=== PATIENT | male | born 1955 | race American Indian/Alaskan Native ===

== ENCOUNTER 2016-09-08 14:39 | Emergency (ER) | payer MEDICARE ==
[2016-09-08 15:59] LABS: Basophils % (Auto) 0.6 % (0.0-1.8); Eosinophils % (Auto) 2.8 % (0.0-4.3); Hematocrit 41.4 % (35.5-45.6); Hemoglobin 13.9 gm/dl (11.8-15.2); Mean Corpuscular HGB Conc 34 % (32-34); Mean Corpuscular Hemoglobin 33 pg (28-32); Mean Corpuscular Volume 99 fl (84-94); Platelet Count 340 K/mm3 (140-440); White Blood Count 8.5 K/mm3 (4.5-11.0)
[2016-09-08 16:10] LABS: Anion Gap 17 mmol/L; Blood Urea Nitrogen 21 mg/dL (9-20); Calcium 9.3 mg/dL (8.4-10.2); Carbon Dioxide 28 mmol/L (22-30); Chloride 99.2 mmol/L (98-107); Glucose 106 mg/dL (75-100); Potassium 3.9 mmol/L (3.6-5.0); Sodium 140 mmol/L (137-145)
[2016-09-08 16:25] LABS: Urine Drugs of Abuse Note Disclamer
[2016-09-08 16:33] LABS: Bilirubin,Urine NEG (Negative); Blood,Urine NEG (Negative); Ketones,Urine TR mg/dL (Negative); Leukocyte Esterase,Urine NEG (Negative); Mucus,Urine FEW /HPF; Nitrite,Urine NEG (Negative)
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
[2016-09-08] MEDS ORDERED: GEODON IM ONE ×3 (20:31→21:10)
[2016-09-09] MEDS ORDERED: ALUM-MAG HYDROX-SIMETH 200-200-20MG/5ML PO PRN (01:30)
[2016-09-09] MEDS ORDERED: MILK OF MAGNESIA PO PRN (01:30)
[2016-09-09] MEDS ORDERED: TYLENOL PO PRN (01:30)
[2016-09-09] MEDS ORDERED: GEODON PO SCH (10:00)
[2016-09-09 10:33] VITALS: BP 126/74
== END 2016-09-09 10:58 ==
LOC: ED 14:39 → EEVIPCON 14:39 → ED 09-09 10:58
DX: F22 Delusional disorders (principal); R45.850 Homicidal ideations; F29 Unspecified psychosis not due to a substance or known physiological condition
CPT/HCPCS: 36415; 80048; 80307; 81001; 85025; 96372; 99285; G0480; J3486; 80320

== ENCOUNTER 2016-09-20 20:25 | Inpatient (IN) | payer MEDICARE ==
[2016-09-20] MEDS ORDERED: HALDOL IM ONE (20:42)
[2016-09-20] MEDS ORDERED: BENADRYL IM ONE (20:42)
[2016-09-20] MEDS ORDERED: ATIVAN IM ONE (20:42)
--- NOTE | 2016-09-20 20:45 | Emergency Department Report ---
ED Psych HPI - General Chief Complaint: Psych Stated Complaint: JENISE EVAL Time Seen by Provider: 09/20/16 20:35 Source: police, RN notes reviewed, old records reviewed Limitations: Other (patient is actively psychotic) - History of Present Illness Initial Comments: This is a 61-year-old male. He is previously unknown to me. He is brought to the hospital by local police department. As per the mounted police officer, Ofc. Winslow , the patient's sister apparently called 911. The patient apparently resides at [place]. History is limited as the patient is rambling, and nonsensical. He did not respond to verbal the escalation techniques or show of force. He became quite agitated and angry when he was informed that he will be made at 1013. He was given Haldol, Ativan, Benadryl to safely allow him to participate in his medical care. Review of old medical records indicates the patient is psychiatrically ill. Nursing staff attempted to contact the patient's sister, to obtain collateral information, but nobody answered the phone. CK is slightly elevated at slightly over 1000. This is not really consistent with rhabdomyolysis. Renal function is within normal limits. Nevertheless, he will be given an IV, 2 L of IV fluid, and we will repeat his CK after 2 L of IV fluid. MD Complaint: other -: unknown Associated Psychiatric Symptoms: other Quality: other Worsens With: other - Related Data Home Medications Medication Instructions Recorded Confirmed Last Taken No Known Home Medications [No 09/09/16 09/21/16 Unknown Reported Home Medications] Allergies Allergy/AdvReac Type Severity Reaction Status Date / Time Unable to Assess Allergy Verified 09/20/16 20:45 ED Review of Systems ROS: Stated complaint: MH EVAL Other details as noted in HPI ED Past Medical Hx - Past Medical History Hx Hypertension: Yes Hx Psychiatric Treatment: Yes - Social History Smoking Status: Unknown if ever smoked Substance Use Type: None - Medications Home Medications: Home Medications Medication Instructions Recorded Confirmed Last Taken Type No Known Home Medications [No 09/09/16 09/21/16 Unknown History Reported Home Medications] ED Physical Exam - General Limitations: Other (patient actively psychotic, rambling, nonsensical) General appearance: in no apparent distress - Head Head exam: Present: atraumatic, normocephalic - Eye Eye exam: Present: normal appearance, EOMI - ENT ENT exam: Present: normal exam, normal orophraynx, mucous membranes moist - Neck Neck exam: Present: normal inspection, full ROM. Absent: tenderness, meningismus - Respiratory Respiratory exam: Present: normal lung sounds bilaterally. Absent: respiratory distress, wheezes, rales, rhonchi, stridor, decreased breath sounds - Cardiovascular Cardiovascular Exam: Present: regular rate, normal rhythm, normal heart sounds. Absent: bradycardia, tachycardia, irregular rhythm, systolic murmur, diastolic murmur, rubs, gallop - GI/Abdominal GI/Abdominal exam: Present: soft, normal bowel sounds. Absent: distended, tenderness, guarding, rebound, rigid, bruit, pulsatile mass - Rectal Rectal exam: Present: deferred - Extremities Exam Extremities exam: Present: normal inspection, full ROM, normal capillary refill. Absent: tenderness, pedal edema, joint swelling, calf tenderness - Back Exam Back exam: Present: normal inspection, full ROM. Absent: tenderness, CVA tenderness (R), CVA tenderness (L), muscle spasm, paraspinal tenderness, vertebral tenderness - Neurological Exam Neurological exam: Present: altered, other (patient walks with a steady gait. Moves 4 extremities spontaneously. Speaks nonsensically.) - Psychiatric Psychiatric exam: Present: agitated - Skin Skin exam: Present: warm, dry, intact, normal color. Absent: rash ED Course Vital Signs 09/20/16 09/20/16 09/21/16 21:34 23:51 03:51 Temperature 98.6 F 98.7 F 98.8 F Pulse Rate 95 H 87 89 Pulse Rate [ Left Radial] Respiratory 14 14 Rate Blood Pressure 133/84 Blood Pressure [Left Arm] Blood Pressure 135/82 138/79 [Right] O2 Sat by Pulse 95 98 98 Oximetry 09/21/16 09/21/16 09/21/16 05:28 07:00 09:00 Temperature 98.1 F Pulse Rate 45 L Pulse Rate [ Left Radial] Respiratory 14 16 16 Rate Blood Pressure Blood Pressure [Left Arm] Blood Pressure 102/56 [Right] O2 Sat by Pulse 98 96 96 Oximetry 09/21/16 09/21/16 15:53 17:30 Temperature 97.6 F 97.6 F Pulse Rate 49 L Pulse Rate [ 66 Left Radial] Respiratory 20 15 Rate Blood Pressure Blood Pressure 119/70 [Left Arm] Blood Pressure 122/78 [Right] O2 Sat by Pulse 99 97 Oximetry - Reevaluation(s) Reevaluation #1: 09/20/16 22:17 Differential diagnosis: Rhabdomyolysis, myositis, decompensated psychosis, drug abuse Reevaluation #2: 09/21/16 05:44 patient has had slightly elevating levels of creatinine kinase. He received a third liter of IV fluid, but the fourth liter was apparently disconnected inadvertently. Additional 2 L of IV fluid over ordered. Compartments are soft. I don't believe he requires admission, but he will require additional observation in the emergency department. Care is transferred to Dr. Barber to follow-up on the patient's repeat creatinine kinase after IV fluids. Once his levels have been demonstrated to be downtrending, I think it is suitable for the patient to be seen and evaluated by crisis for psychiatric placement. 09/21/16 06:07 ED Medical Decision Making - Lab Data Result diagrams: 09/20/16 21:31 09/21/16 08:15 Vital Signs 09/20/16 21:34 Temperature 98.6 F Pulse Rate 95 H Blood Pressure 133/84 O2 Sat by Pulse 95 Oximetry Lab Results 09/20/16 09/20/16 09/20/16 Range/Units 20:42 21:31 21:31 WBC 8.4 (4.5-11.0) K/mm3 RBC 3.99 (3.65-5.03) M/mm3 Hgb 13.0 (11.8-15.2) gm/dl Hct 39.3 (35.5-45.6) % MCV 98 H (84-94) fl MCH 33 H (28-32) pg MCHC 33 (32-34) % RDW 14.0 (13.2-15.2) % Plt Count 301 (140-440) K/mm3 Sodium 142 (137-145) mmol/L Potassium 3.6 (3.6-5.0) mmol/L Chloride 103.2 (98-107) mmol/L Carbon Dioxide 25 (22-30) mmol/L Anion Gap 17 mmol/L BUN 18 (9-20) mg/dL Creatinine 0.9 (0.8-1.5) mg/dL Estimated GFR > 60 ml/min BUN/Creatinine Ratio 20.00 % Glucose 105 H (75-100) mg/dL Calcium 8.6 (8.4-10.2) mg/dL Total Creatine Kinase 1057 H (55-170) units/L Urine Color Yellow (Yellow) Urine Turbidity Clear (Clear) Urine pH 5.0 (5.0-7.0) Ur Specific [place] 1.032 H (1.003-1.030) Urine Protein <15 mg/dl (Negative) mg/dL Urine Glucose (UA) 50 (Negative) mg/dL Urine Ketones Tr (Negative) mg/dL Urine Blood Neg (Negative) Urine Nitrite Neg (Negative) Urine Bilirubin Neg (Negative) Urine Urobilinogen < 2.0 (<2.0) mg/dL Ur Leukocyte Esterase Neg (Negative) Urine WBC (Auto) 1.0 (0.0-6.0) /HPF Urine RBC (Auto) 3.0 (0.0-6.0) /HPF U Epithel Cells (Auto) 1.0 (0-13.0) /HPF Urine Mucus 1+ /HPF Salicylates (2.8-20.0) mg/dL 09/20/16 Range/Units 21:31 WBC (4.5-11.0) K/mm3 RBC (3.65-5.03) M/mm3 Hgb (11.8-15.2) gm/dl Hct (35.5-45.6) % MCV (84-94) fl MCH (28-32) pg MCHC (32-34) % RDW (13.2-15.2) % Plt Count (140-440) K/mm3 Sodium (137-145) mmol/L Potassium (3.6-5.0) mmol/L Chloride (98-107) mmol/L Carbon Dioxide (22-30) mmol/L Anion Gap mmol/L BUN (9-20) mg/dL Creatinine (0.8-1.5) mg/dL Estimated GFR ml/min BUN/Creatinine Ratio % Glucose (75-100) mg/dL Calcium (8.4-10.2) mg/dL Total Creatine Kinase (55-170) units/L Urine Color (Yellow) Urine Turbidity (Clear) Urine pH (5.0-7.0) Ur Specific [place] (1.003-1.030) Urine Protein (Negative) mg/dL Urine Glucose (UA) (Negative) mg/dL Urine Ketones (Negative) mg/dL Urine Blood (Negative) Urine Nitrite (Negative) Urine Bilirubin (Negative) Urine Urobilinogen (<2.0) mg/dL Ur Leukocyte Esterase (Negative) Urine WBC (Auto) (0.0-6.0) /HPF Urine RBC (Auto) (0.0-6.0) /HPF U Epithel Cells (Auto) (0-13.0) /HPF Urine Mucus /HPF Salicylates 1.0 L (2.8-20.0) mg/dL Critical care attestation.: If time is entered above; I have spent that time in minutes in the direct care of this critically ill patient, excluding procedure time. ED Disposition Clinical Impression: Mood disorder Disposition: DC/TX PSY HOSP/PSY UNIT Is pt being admited?: No Does the pt Need Aspirin: No Condition: Good
[2016-09-20 21:25] LABS: Urine Drugs of Abuse Note Disclamer
[2016-09-20 21:36] LABS: Bilirubin,Urine NEG (Negative); Blood,Urine NEG (Negative); Ketones,Urine TR mg/dL (Negative); Leukocyte Esterase,Urine NEG (Negative); Mucus,Urine 1+ /HPF; Nitrite,Urine NEG (Negative); Protein,Urine <15 mg/dL mg/dL (Negative); Urobilinogen,Urine < 2.0 mg/dL (<2.0)
[2016-09-20 21:49] LABS: Hematocrit 39.3 % (35.5-45.6); Mean Corpuscular HGB Conc 33 % (32-34); Mean Corpuscular Hemoglobin 33 pg (28-32); Mean Corpuscular Volume 98 fl (84-94); Platelet Count 301 K/mm3 (140-440); Red Blood Count 3.99 M/mm3 (3.65-5.03); White Blood Count 8.4 K/mm3 (4.5-11.0)
[2016-09-20 22:06] LABS: Anion Gap 17 mmol/L; Blood Urea Nitrogen 18 mg/dL (9-20); Calcium 8.6 mg/dL (8.4-10.2); Carbon Dioxide 25 mmol/L (22-30); Chloride 103.2 mmol/L (98-107); Creatine Kinase 1057 units/L (55-170); Glucose 105 mg/dL (75-100); Potassium 3.6 mmol/L (3.6-5.0); Sodium 142 mmol/L (137-145)
[2016-09-20] MEDS ORDERED: VALIUM ONE (22:16)
[2016-09-20] MEDS ORDERED: VALIUM IM ONE (22:43)
[2016-09-20] MEDS ORDERED: NACL 0.9% 1000 ML IV ONE (23:00)
[2016-09-21] MEDS ORDERED: NACL 0.9% 1000 ML IV ONE ×2 (03:00→06:00)
[2016-09-21] MEDS ORDERED: NACL 0.9% 1000 ML 2,000 ML ONE (05:43)
[2016-09-21 08:45] LABS: Anion Gap 16 mmol/L; Blood Urea Nitrogen 14 mg/dL (9-20); Calcium 7.6 mg/dL (8.4-10.2); Carbon Dioxide 25 mmol/L (22-30); Chloride 106.8 mmol/L (98-107); Creatine Kinase 1408 units/L (55-170); Glucose 103 mg/dL (75-100); Potassium 4.3 mmol/L (3.6-5.0); Sodium 143 mmol/L (137-145)
--- NOTE | 2016-09-21 12:16 | Admit Criteria Form ---
Admission Criteria Documentation: MUSCULOSKELETAL DISEASE GRG Clinical Indications for Admission to Inpatient Care (Place 'X' for any and all applicable criteria): Hospital admission is needed for appropriate care of the patient because of ANY ONE of the following: [ ]I. Fracture, dislocation, or other musculoskeletal injury requiring inpatient care(medical) as indicated by ANY ONE of the following(4)(5)(6)(7) [ ]a) Vertebral fracture requiring observation for instability or neurologic compromise (8) [ ]b) Compartment syndrome (proven or cannot be ruled out during observation level of care) (9) [ ]c) Limb-threatening injury [ ]d) Major injury requiring inpatient stabilization such as traction initiation or external fixation before internal fixation or closure of complex or open fracture [ ]e) Major injury requiring inpatient treatment after emergency or observation level care (as appropriate) [ ]f) Severe pain requiring acute inpatient management [ ]II. Newly diagnosed or suspected bone, joint, or orthopedic device infection (e.g., osteomyelitis, septic arthritis) needing ANY ONE of the following(1)(2)(3) [ ]a) IV antibiotics that cannot be initiated in other than inpatient setting (e.g., patient too unstable or home infusion not available) [ ]b) Device removal or replacement [ ]c) Bone or soft tissue debridement [ ]d) Joint drainage (drain placement or repetitive aspirations) [ ]III. Severe rheumatologic disease (e.g., systemic lupus erythematosus, rheumatoid arthritis) with complications or comorbidities (Also use Optimal Recovery Care Criteria or General Recovery Criteria as appropriate on the basis of predominant condition), including ANY ONE of the following(10 )(11)(12)(13) [ ]a) Severe infection (e.g., [employer] infection, sepsis) (14) [ ]b) Respiratory complications, including ANY ONE of the following: [ ]i) Pleural effusion with respiratory compromise [ ]ii) Pulmonary hypertension with congestive failure [ ]iii) Respiratory failure [ ]iv) Pulmonary hemorrhage (15) [ ]c) Hematologic disease, including ANY ONE of the following: [ ]i) Coagulopathy with bleeding [ ]ii) Thrombosis with hypercoagulable state [ ]iii) Thrombotic thrombocytopenic purpura [ ]d) Cerebritis with seizures, psychosis, or other severe abnormalities [ ]e) Vertebral destruction with monitoring needed for cervical myelopathy& possible respiratory compromise [ ]f) Exacerbation that requires inpatient treatment (e.g., intravenous immunosuppression) (16) [ ]g) Acute renal failure [ ]IV. Severe vasculitis with complications or comorbidities (Also use Optimal Recovery Care Criteria or General Recovery Criteria as appropriate on the basis of predominant condition), including ANY ONE of the following(11)(12)(17)(18)(19)(20) [ ]a) E[employer] vasculitis with seizures, psychosis, or other severe abnormalities (22) [ ]b) Renal failure (16) [ ]c) Pulmonary hemorrhage (15) [ ]d) Cerebral infarction [ ]e) Gastrointestinal ischemia [ ]f) Gangrene or threatened amputation [ ]g) Exacerbation that requires inpatient treatment (e.g., intravenous immunosuppression) (19)(21) [ ]V. Severe myopathy as indicated by ANY ONE of the following (28)(29) [ ]a) New onset of airway compromise or inability to swallow [ ]b) Respiratory deterioration with observation needed for impending respiratory failure [ ]c) Exacerbation that requires inpatient treatment (e.g., intravenous immunosuppression) [ ]. Severe gout (crystal arthropathy) as indicated by ANY ONE of the following (23)(24) [ ]a) Severe pain requiring acute inpatient management [ ]b) Exacerbation that requires inpatient treatment (e.g., intravenous treatment) [ X]VII.Rhabdomyolysis and ANY ONE of the following (25)(26)(27) [ ]a) Acute renal failure [X ]b) Need for intravenous hydration after emergency or observation level care (as appropriate) [ ]c) Inability to maintain oral hydration [ ]d) Change in mental status [ ]e) Electrolyte abnormality that remains after emergency or observation level care (as appropriate) [ ]VIII Post amputation complication, as indicated by ANY ONE of the following [ ]a) Infection [ ]b) Dehiscence [ ]c) Myodesis failure [ ]IX. Severe pain requiring acute inpatient management as indicated by ALL of the following (30)(31)(32) [ ]a) Continuous or frequent (e.g., every 2 to 4 hrs) parenteral analgesics required [A] [ ]b) Rapid improvement expected from treatment or acute intervention ( e.g., surgery, anesthesia procedure[B] [ ]X. Musculoskeletal Disease and ALL of the following: [ ]a) Symptom or finding for which emergency and observation care have failed or are not considered appropriate (Use General Criteria: Observation Care as appropriate) [ ]b) Presence of ANY ONE of the following [ ]i) A General Admission Criteria [ ]ii) A Pediatric General Admission Criteria The original [facility] content created by [facility] has been revised. The portions of the content which have been revised are identified through the use of italic text or in bold, and [facility] has neither reviewed nor approved the modified material. All other unmodified content is copyright [facility]. Please see references footnoted in the original [facility] edition 2016 Admission Criteria Met: Yes
[2016-09-21] MEDS ORDERED: ZOFRAN IV PRN (13:51)
[2016-09-21] MEDS ORDERED: MILK OF MAGNESIA PO PRN (13:51)
[2016-09-21] MEDS ORDERED: AMBIEN PO PRN (13:51)
[2016-09-21] MEDS ORDERED: DULCOLAX PR PRN (13:51)
[2016-09-21 14:48] LABS: Creatine Kinase MB 8.8 ng/mL (0.0-4.0)
[2016-09-21] MEDS ORDERED: RisperDAL ONE (15:08)
[2016-09-21] MEDS ORDERED: NACL 0.9% 1000 ML 1,000 ML ONE (15:09)
[2016-09-21] MEDS: D5NS 1,000 ML IV SCH (15:20)
[2016-09-21] MEDS: RisperDAL PO SCH (15:20)
[2016-09-21] MEDS: PERCOCET 5/325 PO PRN (23:48)
[2016-09-22] MEDS: D5NS 1,000 ML IV SCH ×2 (03:05→13:03)
[2016-09-22] MEDS: RisperDAL PO SCH ×3 (03:06→22:13)
[2016-09-22 06:06] LABS: Basophils % (Auto) 0.6 % (0.0-1.8); Eosinophils % (Auto) 6.1 % (0.0-4.3); Hematocrit 33.9 % (35.5-45.6); Hemoglobin 11.3 gm/dl (11.8-15.2); Mean Corpuscular HGB Conc 33 % (32-34); Mean Corpuscular Hemoglobin 33 pg (28-32); Mean Corpuscular Volume 99 fl (84-94); Platelet Count 270 K/mm3 (140-440); Red Blood Count 3.44 M/mm3 (3.65-5.03); Red Cell Distribution Width 14.3 % (13.2-15.2); White Blood Count 7.5 K/mm3 (4.5-11.0)
[2016-09-22 06:33] LABS: Alanine Aminotransferase 37 units/L (7-56); Albumin 3.4 g/dL (3.9-5); Albumin/Globulin Ratio 1.9 %; Alkaline Phosphatase 68 units/L (35-129); Anion Gap 14 mmol/L; Bilirubin,Total 0.2 mg/dL (0.1-1.2); Blood Urea Nitrogen 9 mg/dL (9-20); Carbon Dioxide 25 mmol/L (22-30); Chloride 106.5 mmol/L (98-107); Glucose 95 mg/dL (75-100); Sodium 141 mmol/L (137-145); Total Protein 5.2 g/dL (6.3-8.2)
[2016-09-22] MEDS ORDERED: NON-FORMULARY (Risperidone [Risperdal] 2 MG) PO SCH (09:15)
--- NOTE | 2016-09-22 09:15 | Event Note ---
Date: 09/21/16 See H/p in reports Rhabdomyolysis-moderate Dehydration Schizophrenia
--- NOTE | 2016-09-22 10:40 | History and Physical Report ---
CHIEF COMPLAINT: Altered sensorium. HISTORY OF PRESENT ILLNESS: A 61-year-old with history of schizophrenia, brought in by local police for rambling on the streets and being nonsensical. He did not respond to verbal orders and escalation techniques from the police, became quite agitated and angry and was brought into the ER for evaluation and the patient was made 05/18. He was given Haldol, Ativan, and Benadryl. Contact was attempted with the patient's sister, was unable to get through to her. CK was towering and because of which the patient was kept for observation and was given 2 liters of fluid . In spite of that, CK went up to 1400, hence the admission. PAST MEDICAL HISTORY: Schizophrenia, on Risperdal 4 mg daily. Other history is not known. Hypertension also present. SOCIAL HISTORY: ____ unable to get information. PAST SURGICAL HISTORY: Unknown. FAMILY HISTORY: Unknown. CURRENT MEDICATIONS: Risperdal 4 mg daily. REVIEW OF SYSTEMS: CONSTITUTIONAL: The patient agitated, rambling speech. HEENT: No sore throat, no post nasal drip. CARDIOVASCULAR AND RESPIRATORY: No shortness of breath, no chest pain, no palpitations, no cough. GASTROINTESTINAL: No nausea, no vomiting, no diarrhea. GENITOURINARY: No dysuria, no flank pain. MUSCULOSKELETAL: No joint pain. No muscle pain. CENTRAL NERVOUS SYSTEM: No syncope, no seizures. Agitated. SKIN: Normal. A 14-point review of systems is done other than agitation and rambling, review of systems essentially negative. PHYSICAL EXAMINATION: GENERAL: Middle-aged male, cooperative during my examination. VITAL SIGNS: Temperature is 122/78 and 102/56, pulse is 95, temperature is 98.6, saturations are 99%. HEENT: Unremarkable. Pupils equal and reactive. NECK: Supple, no lymphadenopathy, no thyromegaly. LUNGS: Clear to auscultation and percussion. Good air entry. CARDIOVASCULAR: S1, S2 heard. No gallop, no murmur, no rub. Apical impulse in left fifth intercostal space in midclavicular line. ABDOMEN: Soft and benign. No hepatosplenomegaly. No guarding, no rigidity. Hernial orifices are normal. EXTREMITIES: Good pedal pulses. No pedal edema. CENTRAL NERVOUS SYSTEM: Alert and oriented x 4, nonfocal exam. Agitation present. SKIN: Normal. LABORATORY DATA: White count is 8400, H and H is 13.0 and 39.3, platelet count is 301,000. Sodium is 142, potassium is 3.6, chloride is 103, BUN and creatinine 18 and 0.9, glucose is 105. Creatinine kinase is 1057, went up to 1369 and 1408. Urine specific gravity is 1.032. Drug screen is negative. ASSESSMENT AND PLAN: 1. Rhabdomyolysis. IV fluids for the time being. Rhabdomyolysis is moderate. We will treat with IV fluids. The patient may be discharged once CPK is below 900. 2. Dehydration. The patient's urine specific gravity is 1.032, hence IV fluids. 3. Schizophrenia. The patient is on Risperdal 4 mg daily. Initially, I started him on Risperdal 1 mg q.12, but changed it to 2 mg q.12. Two mg q.12 is more preferable than 4 mg once a day. 4. Deep venous thrombosis prophylaxis, Lovenox 40 mg subcutaneous daily. JOB# [id number] ALISE/NTS
--- NOTE | 2016-09-22 12:20 | Progress Note ---
Assessment and Plan Assessment and plan: 1. Rhabdomyolysis-improving; cont IVF; monitor CPK 2. Dehydration- improving; cont current iVF 3. Schizophrenia- cotn current meds; await psyche consult 4. DVT prophylaxis-lovenox History Interval history: f/u rhabdomyolysis, acute psychosis Patient is seen at the bedside. No complaints; has sitter in place; not agitated Hospitalist Physical - Constitutional Vitals: Temp Pulse Resp BP Pulse Ox 97.9 F 60 18 107/68 100 09/21/16 23:44 09/21/16 23:44 09/22/16 00:48 09/21/16 23:44 09/21/16 23:44 General appearance: Present: no acute distress, well-nourished - EENT Eyes: Present: PERRL, EOM intact. Absent: scleral icterus, conjunctival injection ENT: hearing intact, clear oral mucosa, no oropharyngeal erythema, no poor dentition - Neck Neck: Present: supple, normal ROM. Absent: enlarged thyroid, masses or JVD - Respiratory Respiratory effort: normal Respiratory: bilateral: diminished, negative: rales, rhonchi, wheezing - Cardiovascular Rhythm: regular Heart Sounds: Present: S1 & S2 - Extremities Extremities: no ischemia, pulses intact, pulses symmetrical, No edema Peripheral Pulses: within normal limits - Abdominal General gastrointestinal: soft, non-tender, non-distended, normal bowel sounds - Integumentary Integumentary: Present: clear - Psychiatric Psychiatric: agitated - Neurologic Neurologic: CNII-XII intact, moves all extremities Results - Labs CBC & Chem 7: 09/22/16 05:37 09/22/16 05:37 Labs: Laboratory Last Values WBC 7.5 K/mm3 (4.5-11.0) 09/22/16 05:37 RBC 3.44 M/mm3 (3.65-5.03) L 09/22/16 05:37 Hgb 11.3 gm/dl (11.8-15.2) L 09/22/16 05:37 Hct 33.9 % (35.5-45.6) L 09/22/16 05:37 MCV 99 fl (84-94) H 09/22/16 05:37 MCH 33 pg (28-32) H 09/22/16 05:37 MCHC 33 % (32-34) 09/22/16 05:37 RDW 14.3 % (13.2-15.2) 09/22/16 05:37 Plt Count 270 K/mm3 (140-440) 09/22/16 05:37 Lymph % (Auto) 25.3 % (13.4-35.0) 09/22/16 05:37 [place] % (Auto) 6.8 % (0.0-7.3) 09/22/16 05:37 Eos % (Auto) 6.1 % (0.0-4.3) H 09/22/16 05:37 Baso % (Auto) 0.6 % (0.0-1.8) 09/22/16 05:37 Lymph # 1.9 K/mm3 (1.2-5.4) 09/22/16 05:37 [place] # 0.5 K/mm3 (0.0-0.8) 09/22/16 05:37 Eos # 0.5 K/mm3 (0.0-0.4) H 09/22/16 05:37 Baso # 0.0 K/mm3 (0.0-0.1) 09/22/16 05:37 Seg Neutrophils % 61.2 % (40.0-70.0) 09/22/16 05:37 Seg Neutrophils # 4.6 K/mm3 (1.8-7.7) 09/22/16 05:37 Sodium 141 mmol/L (137-145) 09/22/16 05:37 Potassium 4.0 mmol/L (3.6-5.0) 09/22/16 05:37 Chloride 106.5 mmol/L (98-107) 09/22/16 05:37 Carbon Dioxide 25 mmol/L (22-30) 09/22/16 05:37 Anion Gap 14 mmol/L 09/22/16 05:37 BUN 9 mg/dL (9-20) 09/22/16 05:37 Creatinine 0.9 mg/dL (0.8-1.5) 09/22/16 05:37 Estimated GFR > 60 ml/min 09/22/16 05:37 BUN/Creatinine Ratio 10.00 % 09/22/16 05:37 Glucose 95 mg/dL (75-100) 09/22/16 05:37 Calcium 8.0 mg/dL (8.4-10.2) L 09/22/16 05:37 Total Bilirubin 0.2 mg/dL (0.1-1.2) 09/22/16 05:37 AST 36 units/L (5-40) 09/22/16 05:37 ALT 37 units/L (7-56) 09/22/16 05:37 Alkaline Phosphatase 68 units/L (35-129) 09/22/16 05:37 Total Creatine Kinase 1002 units/L (55-170) H 09/22/16 05:37 CK-MB (CK-2) 8.8 ng/mL (0.0-4.0) H 09/21/16 14:14 CK-MB (CK-2) Rel Index 0.6 (0-4) 09/21/16 14:14 Total Protein 5.2 g/dL (6.3-8.2) L 09/22/16 05:37 Albumin 3.4 g/dL (3.9-5) L 09/22/16 05:37 Albumin/Globulin Ratio 1.9 % 09/22/16 05:37 Urine Color Yellow (Yellow) 09/20/16 20:42 Urine Turbidity Clear (Clear) 09/20/16 20:42 Urine pH 5.0 (5.0-7.0) 09/20/16 20:42 Ur Specific [place] 1.032 (1.003-1.030) H 09/20/16 20:42 Urine Protein <15 mg/dl mg/dL (Negative) 09/20/16 20:42 Urine Glucose (UA) 50 mg/dL (Negative) 09/20/16 20:42 Urine Ketones Tr mg/dL (Negative) 09/20/16 20:42 Urine Blood Neg (Negative) 09/20/16 20:42 Urine Nitrite Neg (Negative) 09/20/16 20:42 Urine Bilirubin Neg (Negative) 09/20/16 20:42 Urine Urobilinogen < 2.0 mg/dL (<2.0) 09/20/16 20:42 Ur Leukocyte Esterase Neg (Negative) 09/20/16 20:42 Urine WBC (Auto) 1.0 /HPF (0.0-6.0) 09/20/16 20:42 Urine RBC (Auto) 3.0 /HPF (0.0-6.0) 09/20/16 20:42 U Epithel Cells (Auto) 1.0 /HPF (0-13.0) 09/20/16 20:42 Urine Mucus 1+ /HPF 09/20/16 20:42 Salicylates 1.0 mg/dL (2.8-20.0) L 09/20/16 21:31 Urine Opiates Screen Presumptive negative 09/20/16 20:42 Urine Methadone Screen Presumptive negative 09/20/16 20:42 Acetaminophen < 15.0 ug/mL (10.0-30.0) 09/20/16 21:33 Ur Barbiturates Screen Presumptive negative 09/20/16 20:42 Ur Phencyclidine Scrn Presumptive negative 09/20/16 20:42 Ur Amphetamines Screen Presumptive negative 09/20/16 20:42 U Benzodiazepines Scrn Presumptive negative 09/20/16 20:42 Urine Cocaine Screen Presumptive negative 09/20/16 20:42 U Marijuana (THC) Screen Presumptive negative 09/20/16 20:42 Drugs of Abuse Note Disclamer 09/20/16 20:42 Plasma/Serum Alcohol < 0.01 gm% (0-0.07) 09/20/16 21:34
[2016-09-22 14:28] LABS: Creatine Kinase MB 6.1 ng/mL (0.0-4.0)
[2016-09-23] MEDS: RisperDAL PO SCH ×2 (10:30→22:28)
--- NOTE | 2016-09-23 12:16 | Progress Note ---
Assessment and Plan Assessment and plan: 1. Rhabdomyolysis-improving; cont IVF; monitor CPK 2. Schizophrenia- cotn current meds; await psyche consult 3. DVT prophylaxis-lovenox Will clear medically when CPK < 1000 History Interval history: f/u rhabdomyolysis, acute psychosis Patient is seen at the bedside. No complaints; has sitter in place; not agitated Hospitalist Physical - Constitutional Vitals: Temp Pulse Resp BP Pulse Ox 98.6 F 73 18 114/67 96 09/22/16 22:10 09/22/16 22:10 09/22/16 22:10 09/22/16 22:10 09/22/16 22:10 General appearance: Present: no acute distress, well-nourished - EENT Eyes: Present: PERRL, EOM intact. Absent: scleral icterus, conjunctival injection ENT: hearing intact, clear oral mucosa, no oropharyngeal erythema - Neck Neck: Present: supple, normal ROM. Absent: enlarged thyroid, masses or JVD - Respiratory Respiratory effort: normal Respiratory: negative: diminished, rales, rhonchi, wheezing - Cardiovascular Rhythm: regular Heart Sounds: Present: S1 & S2. Absent: gallop - Extremities Extremities: no ischemia, pulses intact, pulses symmetrical, No edema Peripheral Pulses: within normal limits - Abdominal General gastrointestinal: soft, non-tender, non-distended - Integumentary Integumentary: Present: clear - Psychiatric Psychiatric: appropriate mood/affect, intact judgment & insight, cooperative - Neurologic Neurologic: CNII-XII intact, moves all extremities Results - Labs CBC & Chem 7: 09/22/16 05:37 09/22/16 05:37 Labs: Laboratory Last Values WBC 7.5 K/mm3 (4.5-11.0) 09/22/16 05:37 RBC 3.44 M/mm3 (3.65-5.03) L 09/22/16 05:37 Hgb 11.3 gm/dl (11.8-15.2) L 09/22/16 05:37 Hct 33.9 % (35.5-45.6) L 09/22/16 05:37 MCV 99 fl (84-94) H 09/22/16 05:37 MCH 33 pg (28-32) H 09/22/16 05:37 MCHC 33 % (32-34) 09/22/16 05:37 RDW 14.3 % (13.2-15.2) 09/22/16 05:37 Plt Count 270 K/mm3 (140-440) 09/22/16 05:37 Lymph % (Auto) 25.3 % (13.4-35.0) 09/22/16 05:37 [place] % (Auto) 6.8 % (0.0-7.3) 09/22/16 05:37 Eos % (Auto) 6.1 % (0.0-4.3) H 09/22/16 05:37 Baso % (Auto) 0.6 % (0.0-1.8) 09/22/16 05:37 Lymph # 1.9 K/mm3 (1.2-5.4) 09/22/16 05:37 [place] # 0.5 K/mm3 (0.0-0.8) 09/22/16 05:37 Eos # 0.5 K/mm3 (0.0-0.4) H 09/22/16 05:37 Baso # 0.0 K/mm3 (0.0-0.1) 09/22/16 05:37 Seg Neutrophils % 61.2 % (40.0-70.0) 09/22/16 05:37 Seg Neutrophils # 4.6 K/mm3 (1.8-7.7) 09/22/16 05:37 Sodium 141 mmol/L (137-145) 09/22/16 05:37 Potassium 4.0 mmol/L (3.6-5.0) 09/22/16 05:37 Chloride 106.5 mmol/L (98-107) 09/22/16 05:37 Carbon Dioxide 25 mmol/L (22-30) 09/22/16 05:37 Anion Gap 14 mmol/L 09/22/16 05:37 BUN 9 mg/dL (9-20) 09/22/16 05:37 Creatinine 0.9 mg/dL (0.8-1.5) 09/22/16 05:37 Estimated GFR > 60 ml/min 09/22/16 05:37 BUN/Creatinine Ratio 10.00 % 09/22/16 05:37 Glucose 95 mg/dL (75-100) 09/22/16 05:37 Calcium 8.0 mg/dL (8.4-10.2) L 09/22/16 05:37 Total Bilirubin 0.2 mg/dL (0.1-1.2) 09/22/16 05:37 AST 36 units/L (5-40) 09/22/16 05:37 ALT 37 units/L (7-56) 09/22/16 05:37 Alkaline Phosphatase 68 units/L (35-129) 09/22/16 05:37 Total Creatine Kinase 1112 units/L (55-170) H 09/22/16 13:48 CK-MB (CK-2) 6.1 ng/mL (0.0-4.0) H 09/22/16 13:48 CK-MB (CK-2) Rel Index 0.5 (0-4) 09/22/16 13:48 Total Protein 5.2 g/dL (6.3-8.2) L 09/22/16 05:37 Albumin 3.4 g/dL (3.9-5) L 09/22/16 05:37 Albumin/Globulin Ratio 1.9 % 09/22/16 05:37 Urine Color Yellow (Yellow) 09/20/16 20:42 Urine Turbidity Clear (Clear) 09/20/16 20:42 Urine pH 5.0 (5.0-7.0) 09/20/16 20:42 Ur Specific [place] 1.032 (1.003-1.030) H 09/20/16 20:42 Urine Protein <15 mg/dl mg/dL (Negative) 09/20/16 20:42 Urine Glucose (UA) 50 mg/dL (Negative) 09/20/16 20:42 Urine Ketones Tr mg/dL (Negative) 09/20/16 20:42 Urine Blood Neg (Negative) 09/20/16 20:42 Urine Nitrite Neg (Negative) 09/20/16 20:42 Urine Bilirubin Neg (Negative) 09/20/16 20:42 Urine Urobilinogen < 2.0 mg/dL (<2.0) 09/20/16 20:42 Ur Leukocyte Esterase Neg (Negative) 09/20/16 20:42 Urine WBC (Auto) 1.0 /HPF (0.0-6.0) 09/20/16 20:42 Urine RBC (Auto) 3.0 /HPF (0.0-6.0) 09/20/16 20:42 U Epithel Cells (Auto) 1.0 /HPF (0-13.0) 09/20/16 20:42 Urine Mucus 1+ /HPF 09/20/16 20:42 Salicylates 1.0 mg/dL (2.8-20.0) L 09/20/16 21:31 Urine Opiates Screen Presumptive negative 09/20/16 20:42 Urine Methadone Screen Presumptive negative 09/20/16 20:42 Acetaminophen < 15.0 ug/mL (10.0-30.0) 09/20/16 21:33 Ur Barbiturates Screen Presumptive negative 09/20/16 20:42 Ur Phencyclidine Scrn Presumptive negative 09/20/16 20:42 Ur Amphetamines Screen Presumptive negative 09/20/16 20:42 U Benzodiazepines Scrn Presumptive negative 09/20/16 20:42 Urine Cocaine Screen Presumptive negative 09/20/16 20:42 U Marijuana (THC) Screen Presumptive negative 09/20/16 20:42 Drugs of Abuse Note Disclamer 09/20/16 20:42 Plasma/Serum Alcohol < 0.01 gm% (0-0.07) 09/20/16 21:34
[2016-09-23] MEDS: PERCOCET 5/325 PO PRN ×2 (14:01→22:27)
[2016-09-23] MEDS: TYLENOL PO PRN (18:13)
--- NOTE | 2016-09-23 20:58 | Consultation ---
History of Present Illness - Reason for Consult Consult date: 09/23/16 Reason for consult: medication management - Chief Complaint Chief complaint: "I wanna go home" - History of Present Psychiatric Illness 61 year old BM with prior psych history of psychosis presented to [facility] via police for worsening psychosis. We have been asked to manage the patient's psychiatric issues. Currently the patient states that he doesn't know why he is here. He continues to be disorganized and paranoid with poor insight into his mental illness. Question asked pertaining to his presentation and what precipitated his admission were answered by disorganized responses. He noted that there's was nothing wrong with him and he's never needed any mental health help. Per collateral patient has been decompensating to a point where he became belligerent with his family. This prompted police to be called and subsequent admission to the hospital. Early in the interview patient stated that he didn't want to answer any further questions and I was unable to obtain a full interview. Medications and Allergies Allergies Allergy/AdvReac Type Severity Reaction Status Date / Time Unable to Assess Allergy Verified 09/20/16 20:45 Home Medications Medication Instructions Recorded Confirmed Last Taken Type risperiDONE [RisperDAL] 4 mg PO DAILY 09/22/16 09/22/16 Unknown History Active Meds: Active Medications Acetaminophen (Tylenol) 650 mg PO Q4H PRN PRN Reason: Pain MILD(1-3)/Fever >100.5/CALVO Last Admin: 09/23/16 18:13 Dose: 650 mg Bisacodyl (Dulcolax) 10 mg [place] QDAY PRN PRN Reason: Constipation unrelieved by MOM Dextrose/Sodium Chloride (D5ns) 1,000 mls @ 100 mls/hr IV DIRECT RAMSEY Last Admin: 09/22/16 13:03 Dose: 100 mls/hr Magnesium Hydroxide (Milk Of Magnesia) 30 ml PO Q4H PRN PRN Reason: Constipation Ondansetron HCl (Zofran) 4 mg IV Q8H PRN PRN Reason: N/V unrelieved by Reglan Oxycodone/Acetaminophen (Percocet 5/325) 1 tab PO Q6H PRN PRN Reason: Pain, Moderate (4-6) Last Admin: 09/23/16 14:01 Dose: 1 tab Risperidone (Risperdal) 2 mg PO Q12H RAMSEY Last Admin: 09/23/16 10:30 Dose: 2 mg Zolpidem Tartrate (Ambien) 5 mg PO QHS PRN PRN Reason: Insomnia Last Admin: 09/21/16 23:48 Dose: 5 mg Past psychiatric history - Past Medical History Past Medical History: hypertension - past Psychiatric treatment and history Psych: Schizophrenia psychiatric treatment history: inpt: pt denies, chart review suggest [place] treatment, others unknown Oupt: pt denies Suicide history pt denies unknown prior medical psych history - Social History Social history: other (ws not able to get a clear social or family history given the patient refused to answer these questions. He did deny any etoh or illicit drug abuse or history of any abuse) Mental Status Exam - Vital signs Last Vital Signs Temp 102.2 F H 09/23/16 16:30 Pulse 80 09/23/16 16:30 Resp 16 09/23/16 18:13 BP 130/75 09/23/16 16:30 Pulse Ox 100 09/23/16 16:30 - Exam Orientation: person Affect: anxious, agitated Mood: anxious Thought content: delusions Thought Process: Circumstantial, Tangential, Disorganized Perceptions: other (patient denies any hallucinations) Speech: normal rate and pattern Concentration: distractible Motor activity: normal Level of consciousness: alert Interaction: irritable, uncooperative (unable to fully assess memory due to noncompliance with my questions) Results Result Diagrams: 09/22/16 05:37 09/22/16 05:37 All other labs normal. Assessment and Plan Assessment and plan: 61 year old BM with prior psych history of psychosis presented to [facility] with increased psychosis. While he denies any current psychosis his actions and collateral suggests otherwise. He presents with paranoia and continued disorganized behavior. He was resistant towards answering many of my questions and did refuse to further questions during the interview. Plan: 1. psychosis- continue current management with Risperdal- may need to increase to higher does but given the patient has restarted treatment recently we will follow and adjust accordingly. Once medically stable the patient can resume treatment at psych facility 2. medical- patient continues to have elevated CPK and a high temp today- will observe and follow this being mindful the role an antipsychotic can play with these symptoms- namely NMS- lft's normal and no rigidity, more disorganized than confused, high temp and CPK.
[2016-09-24] MEDS: TYLENOL PO PRN (09:13)
[2016-09-24] MEDS: RisperDAL PO SCH ×2 (09:14→21:54)
[2016-09-24 09:25] LABS: Basophils % (Auto) 0.3 % (0.0-1.8); Eosinophils % (Auto) 0.1 % (0.0-4.3); Hemoglobin 12.2 gm/dl (11.8-15.2); Mean Corpuscular HGB Conc 34 % (32-34); Mean Corpuscular Hemoglobin 33 pg (28-32); Mean Corpuscular Volume 97 fl (84-94); Platelet Count 241 K/mm3 (140-440); Red Blood Count 3.74 M/mm3 (3.65-5.03); Red Cell Distribution Width 13.9 % (13.2-15.2); White Blood Count 6.7 K/mm3 (4.5-11.0)
--- NOTE | 2016-09-24 09:57 | XRay Report ---
Single view chest: History: Pneumonia. Findings: Normal cardiomediastinal silhouette. Trachea is midline. Bibasilar linear and airspace opacities. Normal CP angles. Impression: Bibasilar discoid atelectasis/pneumonitis.
[2016-09-24] MEDS: ZOSYN/NS 4.5GM/100ML 4.5 GM/100 ML VIAL IV SCH ×3 (11:33→21:54)
--- NOTE | 2016-09-24 14:21 | Progress Note ---
Assessment and Plan Assessment and plan: 1. Sirs vs Sepsis due atectasis vs pneumonitis- blood c/s; start empirical IV zosyn and de-escalate as Blood c/s become available; antipyretic measures; incentive spirometry; wbc normal; albuterol tx prn 2. Rhabdomyolysis-resolving; cotn IVF; monitor CPK 3. Schizophrenia- cotn current meds; defer manx to psyche 4. DVT prophylaxis-lovenox History Interval history: f/u rhabdomyolysis, acute psychosis Patient is seen at the bedside. No complaints; has sitter in place; not agitated ; febrile over the last 24 hrs; cough has improved as per patient Hospitalist Physical - Constitutional Vitals: Temp Pulse Resp BP Pulse Ox 102.3 F H 92 H 20 116/62 94 09/24/16 07:00 09/24/16 00:39 09/24/16 07:00 09/24/16 07:00 09/24/16 07:00 General appearance: Present: no acute distress, well-nourished - EENT Eyes: Present: PERRL, EOM intact. Absent: scleral icterus, conjunctival injection ENT: hearing intact, clear oral mucosa, no oropharyngeal erythema, no poor dentition - Neck Neck: Present: supple, normal ROM. Absent: enlarged thyroid, masses or JVD - Respiratory Respiratory effort: normal Respiratory: bilateral: diminished, negative: rales, rhonchi, wheezing - Cardiovascular Rhythm: regular Heart Sounds: Present: S1 & S2. Absent: gallop - Extremities Extremities: no ischemia, pulses intact, pulses symmetrical, No edema Peripheral Pulses: within normal limits - Abdominal General gastrointestinal: soft, non-tender, non-distended, normal bowel sounds - Integumentary Integumentary: Present: clear - Psychiatric Psychiatric: cooperative, no agitated - Neurologic Neurologic: CNII-XII intact, moves all extremities Results - Labs CBC & Chem 7: 09/24/16 08:50 09/22/16 05:37 Labs: Laboratory Last Values WBC 6.7 K/mm3 (4.5-11.0) 09/24/16 08:50 RBC 3.74 M/mm3 (3.65-5.03) 09/24/16 08:50 Hgb 12.2 gm/dl (11.8-15.2) 09/24/16 08:50 Hct 36.0 % (35.5-45.6) 09/24/16 08:50 MCV 97 fl (84-94) H 09/24/16 08:50 MCH 33 pg (28-32) H 09/24/16 08:50 MCHC 34 % (32-34) 09/24/16 08:50 RDW 13.9 % (13.2-15.2) 09/24/16 08:50 Plt Count 241 K/mm3 (140-440) 09/24/16 08:50 Lymph % (Auto) 6.8 % (13.4-35.0) L 09/24/16 08:50 [place] % (Auto) 11.9 % (0.0-7.3) H 09/24/16 08:50 Eos % (Auto) 0.1 % (0.0-4.3) 09/24/16 08:50 Baso % (Auto) 0.3 % (0.0-1.8) 09/24/16 08:50 Lymph # 0.5 K/mm3 (1.2-5.4) L 09/24/16 08:50 [place] # 0.8 K/mm3 (0.0-0.8) 09/24/16 08:50 Eos # 0.0 K/mm3 (0.0-0.4) 09/24/16 08:50 Baso # 0.0 K/mm3 (0.0-0.1) 09/24/16 08:50 Seg Neutrophils % 80.9 % (40.0-70.0) H 09/24/16 08:50 Seg Neutrophils # 5.4 K/mm3 (1.8-7.7) 09/24/16 08:50 Sodium 141 mmol/L (137-145) 09/22/16 05:37 Potassium 4.0 mmol/L (3.6-5.0) 09/22/16 05:37 Chloride 106.5 mmol/L (98-107) 09/22/16 05:37 Carbon Dioxide 25 mmol/L (22-30) 09/22/16 05:37 Anion Gap 14 mmol/L 09/22/16 05:37 BUN 9 mg/dL (9-20) 09/22/16 05:37 Creatinine 0.9 mg/dL (0.8-1.5) 09/22/16 05:37 Estimated GFR > 60 ml/min 09/22/16 05:37 BUN/Creatinine Ratio 10.00 % 09/22/16 05:37 Glucose 95 mg/dL (75-100) 09/22/16 05:37 Calcium 8.0 mg/dL (8.4-10.2) L 09/22/16 05:37 Total Bilirubin 0.2 mg/dL (0.1-1.2) 09/22/16 05:37 AST 36 units/L (5-40) 09/22/16 05:37 ALT 37 units/L (7-56) 09/22/16 05:37 Alkaline Phosphatase 68 units/L (35-129) 09/22/16 05:37 Total Creatine Kinase 406 units/L (55-170) H 09/24/16 08:50 CK-MB (CK-2) 6.1 ng/mL (0.0-4.0) H 09/22/16 13:48 CK-MB (CK-2) Rel Index 0.5 (0-4) 09/22/16 13:48 Total Protein 5.2 g/dL (6.3-8.2) L 09/22/16 05:37 Albumin 3.4 g/dL (3.9-5) L 09/22/16 05:37 Albumin/Globulin Ratio 1.9 % 09/22/16 05:37 Urine Color Yellow (Yellow) 09/20/16 20:42 Urine Turbidity Clear (Clear) 09/20/16 20:42 Urine pH 5.0 (5.0-7.0) 09/20/16 20:42 Ur Specific [place] 1.032 (1.003-1.030) H 09/20/16 20:42 Urine Protein <15 mg/dl mg/dL (Negative) 09/20/16 20:42 Urine Glucose (UA) 50 mg/dL (Negative) 09/20/16 20:42 Urine Ketones Tr mg/dL (Negative) 09/20/16 20:42 Urine Blood Neg (Negative) 09/20/16 20:42 Urine Nitrite Neg (Negative) 09/20/16 20:42 Urine Bilirubin Neg (Negative) 09/20/16 20:42 Urine Urobilinogen < 2.0 mg/dL (<2.0) 09/20/16 20:42 Ur Leukocyte Esterase Neg (Negative) 09/20/16 20:42 Urine WBC (Auto) 1.0 /HPF (0.0-6.0) 09/20/16 20:42 Urine RBC (Auto) 3.0 /HPF (0.0-6.0) 09/20/16 20:42 U Epithel Cells (Auto) 1.0 /HPF (0-13.0) 09/20/16 20:42 Urine Mucus 1+ /HPF 09/20/16 20:42 Salicylates 1.0 mg/dL (2.8-20.0) L 09/20/16 21:31 Urine Opiates Screen Presumptive negative 09/20/16 20:42 Urine Methadone Screen Presumptive negative 09/20/16 20:42 Acetaminophen < 15.0 ug/mL (10.0-30.0) 09/20/16 21:33 Ur Barbiturates Screen Presumptive negative 09/20/16 20:42 Ur Phencyclidine Scrn Presumptive negative 09/20/16 20:42 Ur Amphetamines Screen Presumptive negative 09/20/16 20:42 U Benzodiazepines Scrn Presumptive negative 09/20/16 20:42 Urine Cocaine Screen Presumptive negative 09/20/16 20:42 U Marijuana (THC) Screen Presumptive negative 09/20/16 20:42 Drugs of Abuse Note Disclamer 09/20/16 20:42 Plasma/Serum Alcohol < 0.01 gm% (0-0.07) 09/20/16 21:34 - Imaging and Cardiology Chest x-ray: report reviewed (bibasiilar discoid atelectasis / pneumonitis)
[2016-09-24] MEDS ORDERED: PROVENTIL IH PRN (14:22)
[2016-09-24] MEDS: D5NS 1,000 ML IV SCH (15:10)
--- NOTE | 2016-09-24 19:42 | Progress Note ---
Subjective - Reason for Consult Reason for consult: psych management - Chief Complaint Chief complaint: Patient is a 61 year old BM with prior psych history of schizophrenia. Patient continues to be preoccupied with wanting to go home. However secondary to his psychosis and physical condition he does need continued active management. When we discussed this with the patient he was unable to appreciate the need for treatment- manifested via his psychosis. While not responding to internal stimuli he continues to present with paranoia. No SI/HI. Mental Status Exam - Vital signs Last Vital Signs Temp 102.3 F H 09/24/16 07:00 Pulse 92 H 09/24/16 00:39 Resp 20 09/24/16 07:00 BP 116/62 09/24/16 07:00 Pulse Ox 94 09/24/16 07:00 - Exam Orientation: place, person Affect: anxious Mood: calm Thought content: delusions, paranoia Thought Process: Circumstantial, Tangential Perceptions: other (pt denies) Speech: normal rate and pattern Concentration: distractible Motor activity: normal Level of consciousness: alert Memory: Intact Interaction: irritable, defensive Assessment and Plan 61 year old BM with prior psych history of psychosis presented to [facility] with increased psychosis. While he denies any current psychosis his actions and collateral suggests otherwise. He presents with paranoia but less disorganized behavior today. His preoccupations today involve going home. Plan: 1. psychosis- continue current management with Risperdal- may need to increase to higher does but given the patient has restarted treatment recently we will follow and adjust accordingly. Once medically stable the patient can resume treatment at psych facility 2. medical- patient has lower CPK levels today, but a high temp today- will observe and follow this being mindful the role an antipsychotic can play with these symptoms- namely NMS- lft's normal and no rigidity, more disorganized than confused, high temp and CPK. decreased level of disorganized behavior
[2016-09-24] MEDS: PERCOCET 5/325 PO PRN (21:56)
[2016-09-25] MEDS: ZOSYN/NS 4.5GM/100ML 4.5 GM/100 ML VIAL IV SCH (05:35)
[2016-09-25] MEDS: RisperDAL PO SCH (09:04)
--- NOTE | 2016-09-25 13:47 | Progress Note ---
Assessment and Plan Assessment and plan: 1. Sirs vs Sepsis due atectasis vs pneumonitis- blood c/s; switch to po levaquin as he is not taking IV zosyn;spirometry;albuterol tx prn 2. Rhabdomyolysis-resolving; D/c IVF- not cooperative; monitor CPK 3. Schizophrenia- cotn current meds; defer manx to psyche 4. DVT prophylaxis-lovenox History Interval history: f/u rhabdomyolysis, acute psychosis Patient is seen at the bedside. No complaints; has sitter in place; not agitated ; now afebrile; refused to have IV access for IVF / antibiotics Hospitalist Physical - Constitutional Vitals: Temp Pulse Resp BP Pulse Ox 98.6 F 63 20 123/67 97 09/25/16 09:00 09/25/16 09:00 09/25/16 09:00 09/25/16 09:00 09/25/16 09:00 General appearance: Present: no acute distress, well-nourished - EENT Eyes: Present: PERRL, EOM intact. Absent: scleral icterus, conjunctival injection ENT: hearing intact, clear oral mucosa, no oropharyngeal erythema, no poor dentition - Neck Neck: Present: supple, normal ROM. Absent: enlarged thyroid, masses or JVD - Respiratory Respiratory effort: normal Respiratory: negative: diminished, rales, rhonchi, wheezing - Cardiovascular Rhythm: regular Heart Sounds: Present: S1 & S2. Absent: gallop - Extremities Extremities: no ischemia, pulses intact, pulses symmetrical, No edema - Abdominal General gastrointestinal: soft, non-tender, non-distended, normal bowel sounds - Psychiatric Psychiatric: no intact judgment & insight, no memory intact, no cooperative, no agitated - Neurologic Neurologic: CNII-XII intact, moves all extremities Results - Labs CBC & Chem 7: 09/24/16 08:50 09/22/16 05:37 Labs: Laboratory Last Values WBC 6.7 K/mm3 (4.5-11.0) 09/24/16 08:50 RBC 3.74 M/mm3 (3.65-5.03) 09/24/16 08:50 Hgb 12.2 gm/dl (11.8-15.2) 09/24/16 08:50 Hct 36.0 % (35.5-45.6) 09/24/16 08:50 MCV 97 fl (84-94) H 09/24/16 08:50 MCH 33 pg (28-32) H 09/24/16 08:50 MCHC 34 % (32-34) 09/24/16 08:50 RDW 13.9 % (13.2-15.2) 09/24/16 08:50 Plt Count 241 K/mm3 (140-440) 09/24/16 08:50 Lymph % (Auto) 6.8 % (13.4-35.0) L 09/24/16 08:50 [place] % (Auto) 11.9 % (0.0-7.3) H 09/24/16 08:50 Eos % (Auto) 0.1 % (0.0-4.3) 09/24/16 08:50 Baso % (Auto) 0.3 % (0.0-1.8) 09/24/16 08:50 Lymph # 0.5 K/mm3 (1.2-5.4) L 09/24/16 08:50 [place] # 0.8 K/mm3 (0.0-0.8) 09/24/16 08:50 Eos # 0.0 K/mm3 (0.0-0.4) 09/24/16 08:50 Baso # 0.0 K/mm3 (0.0-0.1) 09/24/16 08:50 Seg Neutrophils % 80.9 % (40.0-70.0) H 09/24/16 08:50 Seg Neutrophils # 5.4 K/mm3 (1.8-7.7) 09/24/16 08:50 Sodium 141 mmol/L (137-145) 09/22/16 05:37 Potassium 4.0 mmol/L (3.6-5.0) 09/22/16 05:37 Chloride 106.5 mmol/L (98-107) 09/22/16 05:37 Carbon Dioxide 25 mmol/L (22-30) 09/22/16 05:37 Anion Gap 14 mmol/L 09/22/16 05:37 BUN 9 mg/dL (9-20) 09/22/16 05:37 Creatinine 0.9 mg/dL (0.8-1.5) 09/22/16 05:37 Estimated GFR > 60 ml/min 09/22/16 05:37 BUN/Creatinine Ratio 10.00 % 09/22/16 05:37 Glucose 95 mg/dL (75-100) 09/22/16 05:37 Calcium 8.0 mg/dL (8.4-10.2) L 09/22/16 05:37 Total Bilirubin 0.2 mg/dL (0.1-1.2) 09/22/16 05:37 AST 36 units/L (5-40) 09/22/16 05:37 ALT 37 units/L (7-56) 09/22/16 05:37 Alkaline Phosphatase 68 units/L (35-129) 09/22/16 05:37 Total Creatine Kinase 325 units/L (55-170) H 09/25/16 05:52 CK-MB (CK-2) 6.1 ng/mL (0.0-4.0) H 09/22/16 13:48 CK-MB (CK-2) Rel Index 0.5 (0-4) 09/22/16 13:48 Total Protein 5.2 g/dL (6.3-8.2) L 09/22/16 05:37 Albumin 3.4 g/dL (3.9-5) L 09/22/16 05:37 Albumin/Globulin Ratio 1.9 % 09/22/16 05:37 Urine Color Yellow (Yellow) 09/20/16 20:42 Urine Turbidity Clear (Clear) 09/20/16 20:42 Urine pH 5.0 (5.0-7.0) 09/20/16 20:42 Ur Specific [place] 1.032 (1.003-1.030) H 09/20/16 20:42 Urine Protein <15 mg/dl mg/dL (Negative) 09/20/16 20:42 Urine Glucose (UA) 50 mg/dL (Negative) 09/20/16 20:42 Urine Ketones Tr mg/dL (Negative) 09/20/16 20:42 Urine Blood Neg (Negative) 09/20/16 20:42 Urine Nitrite Neg (Negative) 09/20/16 20:42 Urine Bilirubin Neg (Negative) 09/20/16 20:42 Urine Urobilinogen < 2.0 mg/dL (<2.0) 09/20/16 20:42 Ur Leukocyte Esterase Neg (Negative) 09/20/16 20:42 Urine WBC (Auto) 1.0 /HPF (0.0-6.0) 09/20/16 20:42 Urine RBC (Auto) 3.0 /HPF (0.0-6.0) 09/20/16 20:42 U Epithel Cells (Auto) 1.0 /HPF (0-13.0) 09/20/16 20:42 Urine Mucus 1+ /HPF 09/20/16 20:42 Salicylates 1.0 mg/dL (2.8-20.0) L 09/20/16 21:31 Urine Opiates Screen Presumptive negative 09/20/16 20:42 Urine Methadone Screen Presumptive negative 09/20/16 20:42 Acetaminophen < 15.0 ug/mL (10.0-30.0) 09/20/16 21:33 Ur Barbiturates Screen Presumptive negative 09/20/16 20:42 Ur Phencyclidine Scrn Presumptive negative 09/20/16 20:42 Ur Amphetamines Screen Presumptive negative 09/20/16 20:42 U Benzodiazepines Scrn Presumptive negative 09/20/16 20:42 Urine Cocaine Screen Presumptive negative 09/20/16 20:42 U Marijuana (THC) Screen Presumptive negative 09/20/16 20:42 Drugs of Abuse Note Disclamer 09/20/16 20:42 Plasma/Serum Alcohol < 0.01 gm% (0-0.07) 09/20/16 21:34 Microbiology 09/24/16 08:50 Peripheral/Venous Blood Culture - Preliminary NO GROWTH AFTER 24 HOURS 09/24/16 09:03 Peripheral/Venous Blood Culture - Preliminary NO GROWTH AFTER 24 HOURS
[2016-09-25] MEDS ORDERED: LEVAQUIN PO SCH (14:00)
--- NOTE | 2016-09-25 15:09 | Discharge Summary ---
Providers - Providers Date of Admission: 09/21/16 13:52 Date of discharge: 09/25/16 Attending physician: MISTY RESTREPO 09/21/16 14:00 Consult to Mental Health [CONS] Routine Reason For Exam: psych problems Place consult to:: Notified:: Y Was contact made?: Yes If yes, spoke with:: ABRAHAM Primary care physician: LOADER UNLOADER Hospitalization Reason for admission: acute psychosis Condition: Good Pertinent studies: cxr- bilateral discoid astelectasis/ pneumonitis Hospital course: Mr. Luevano is a 61 yo M who presented to the emergency room with acute psychosis. He was also diagnosed with rhabdomyolysis. He was admitted and started on antipsychotic medications and seen by the system validation engineer. He was initially treated with IV fluids. He also developed cough and fever and was treated for pneumonitis with antibiotics. His fever resolved. He was cleared for discharge to inpatient psych by the psychiatrist. Patient He is medically cleared for discharge to inpatient psyche Condition at discharge-stable 31 minutes spent on discharge Disposition: DC/TX PSY HOSP/PSY UNIT - Discharge Diagnoses (1) Pneumonitis Status: Acute (2) Psychosis Status: Acute Qualifiers: Psychosis type: P Schizoaffective disorder type: S Schizophrenia type: S (3) Rhabdomyolysis Status: Acute Qualifiers: Rhabdomyolysis type: R Encounter type: E Core Measure Documentation - Palliative Care Palliative Care/ Comfort Measures: Not Applicable - Core Measures Any of the following diagnoses?: none Exam - Constitutional Vitals: Temp Pulse Resp BP Pulse Ox 98.6 F 63 20 123/67 97 09/25/16 09:00 09/25/16 09:00 09/25/16 09:00 09/25/16 09:00 09/25/16 09:00 see physical exam dictated in progress note for 09/25/2016 Plan Activity: no restrictions Diet: regular Follow up with: PRIMARY CAREMD [Primary Care Provider] - 3-5 Days Prescriptions: Levofloxacin [Levaquin TAB] 500 mg PO Q24HR #4 tablet
[2016-09-25 15:54] VITALS: BP 116/72
--- NOTE | 2016-09-25 21:46 | Progress Note ---
Subjective - Reason for Consult Reason for consult: psych management - Chief Complaint Chief complaint: Patient is a 61 year old BM with prior psych history of schizophrenia. Once again, patient continues to be preoccupied with wanting to go home. However secondary to his psychosis and physical condition he does need continued active management. When we discussed this with the patient he was unable to appreciate the need for treatment- manifested via his psychosis. While not responding to internal stimuli he continues to present with paranoia. No SI/ HI. Patient is more cooperative today in discussing his needs without allowing the paranoia to interfere with the discussion. Mental Status Exam - Vital signs Last Vital Signs Temp 97.6 F 09/25/16 15:53 Pulse 64 09/25/16 15:53 Resp 16 09/25/16 15:53 BP 116/72 09/25/16 15:53 Pulse Ox 97 09/25/16 09:00 - Exam Orientation: place, person Affect: normal Mood: appropriate Thought content: delusions Thought Process: Circumstantial, Tangential Perceptions: auditory, hallucinations Speech: normal rate and pattern Concentration: distractible Motor activity: normal Level of consciousness: alert Memory: Intact Interaction: defensive Assessment and Plan 61 year old BM with prior psych history of psychosis presented to [facility] with increased psychosis. While he denies any current psychosis his actions and collateral suggests otherwise. He presents with paranoia but less disorganized behavior today. His preoccupations today involve going home. Plan: 1. psychosis- Patient is medically stable- the patient can resume treatment at psych facility
--- NOTE | 2016-09-28 09:52 | Query- Pneumonia Documented ---
Deasergey Donaldson Date:_09/28/16 Nylon Mender/CDS:_Brenda/Ruben Smith Phone#:_[phone] Exercise your independent professional judgment when responding to query. Questions asked do not imply a particular answer is desired or expected. We greatly appreciate your clarification on this issue. Clinical Documentation States: 61 Y/O male admitted on 09/21/16 with history of Schizophrenia was brought in by police for rambling on the streets and being nonsensical. Patient developed shortness of breath, pneumonitis. Clinical Findings Show: Antibiotics: Prescribed IV Zosyn, patient would not take IV so given PO Levaquin Chest Imaging: Bibasilar discoid atelectasis/pneumonitis Please further specify known or suspected Etiology: [ ] Aspiration Pneumonia [ ] Gram Negative Pneumonia [ x] Gram Positive Pneumonia [ ] Pseudomonas Pneumonia [ ] MRSA - related Pneumonia [ ] Viral Pneumonia [ ] Candidal Pneumonia [ ] Other: [ ] Unable to determine Present on Admission: [ x] Yes (Y) [ ] Clinically undeterminable (W) [ ] No (N) Please also document response in your Progress Notes and/or Discharge Summary and indicate if the condition was present on admission. MTDD
== END 2016-09-25 17:28 | DRG 557 ==
LOC: EEVIPCON 20:25 → ED 20:25 → 3A 09-21 13:52
PROVIDERS: ADMIT Internal Medicine; ATTEND Hospitalist
DX: M62.82 Rhabdomyolysis (principal); J15.9 Unspecified bacterial pneumonia; F20.9 Schizophrenia, unspecified; I10 Essential (primary) hypertension; F39 Unspecified mood [affective] disorder; E86.0 Dehydration; F29 Unspecified psychosis not due to a substance or known physiological condition
CPT/HCPCS: 36415; 71010; 80048; 80053; 80307; 80320; 81001; 82550; 82553; 85025; 85027; 87040; 96361; 96372; G0480; J1200; J1630; J2060; J2543; J3360; J7030; J7042

== ENCOUNTER 2016-11-07 16:53 | Emergency (ER) | payer MEDICARE ==
[2016-11-07] MEDS ORDERED: VITAMIN B-1 100 MG, FOLVITE 1 MG, INFUVITE 10 ML, MAGNESIUM SULFATE 2 GM in NACL 0.9% 1... IV ONE (17:27)
[2016-11-07 17:29] LABS: Urine Drugs of Abuse Note Disclamer
[2016-11-07] MEDS ORDERED: BENADRYL IM PRN (17:36)
[2016-11-07] MEDS ORDERED: HALDOL IM PRN (17:36)
[2016-11-07] MEDS ORDERED: ATIVAN IM PRN (17:36)
[2016-11-07 17:38] LABS: Bilirubin,Urine NEG (Negative); Blood,Urine NEG (Negative); Ketones,Urine TR mg/dL (Negative); Leukocyte Esterase,Urine NEG (Negative); Mucus,Urine 3+ /HPF; Nitrite,Urine NEG (Negative); Urobilinogen,Urine < 2.0 mg/dL (<2.0); WBC,Urine < 1.0 /HPF (0.0-6.0)
--- NOTE | 2016-11-07 17:42 | Emergency Department Report ---
HPI - General Chief Complaint: Psych Time Seen by Provider: 11/07/16 17:25 - HPI HPI: Room 13 The patient is a 61-year-old male presenting with a chief complaint of schizophrenia. Patient has a history of schizophrenia reportedly refuses to take his medication. Today at the senior care the patient reportedly had taken a knife was walking down the street began walking in and out of traffic [place]. Another resident called police but the patient ran. When the patient made his way back to his senior care is reported to have been "acting out" which includes locked himself in the room and being aggressive with people. The patient reportedly refuses to take his medications Location: Mental state Duration: [see above] Quality: Aggressive Severity: Severe Modifying factors: [see above] Context: [see above] Mode of transportation: [not driving] ED Past Medical Hx - Past Medical History Previous Medical History?: Yes Hx Hypertension: Yes Hx Psychiatric Treatment: Yes (schizophrenia, PTSD) Additional medical history: unobtainable - Surgical History Additional Surgical History: unobtainable - Family History Family history: no significant - Social History Smoking Status: Current Every Day Smoker Substance Use Type: Alcohol - Medications Home Medications: Home Medications Medication Instructions Recorded Confirmed Last Taken Type risperiDONE [RisperDAL] 4 mg PO BID 09/22/16 11/07/16 Unknown History Divalproex ER [DepaKOTE ER] 1,000 mg PO QDAY 11/07/16 11/07/16 Unknown History ED Review of Systems ROS: Stated complaint: HARMFUL TO SELF AND OTHERS Other details as noted in HPI Comment: All other systems reviewed and negative Constitutional: denies: chills, fever Eyes: denies: eye pain, eye discharge, vision change ENT: denies: ear pain, throat pain Respiratory: denies: cough, shortness of breath, wheezing Cardiovascular: denies: chest pain, palpitations Endocrine: no symptoms reported Gastrointestinal: denies: abdominal pain, nausea, diarrhea Genitourinary: denies: urgency, dysuria Musculoskeletal: denies: back pain, joint swelling, arthralgia Skin: denies: rash, lesions Neurological: denies: headache, weakness, paresthesias Psychiatric: other (aggressive behavior) Hematological/Lymphatic: denies: easy bleeding, easy bruising Physical Exam - Physical Exam Vital Signs: Vital Signs 11/07/16 17:07 Temperature 98.5 F Pulse Rate 127 H Respiratory 20 Rate Blood Pressure 126/83 O2 Sat by Pulse 99 Oximetry Physical Exam: GENERAL: The patient is well-developed well-nourished male lying on stretcher appearing agitated and uncooperative. [] HEENT: Normocephalic. Atraumatic. Extraocular motions are intact. Patient has moist mucous membranes. NECK: Supple. Trachea midline CHEST/LUNGS: There is no respiratory distress noted. HEART/CARDIOVASCULAR: Regular. There is no tachycardia. There is no gallop rub or murmur. ABDOMEN: Abdomen is soft, nontender. Patient has normal bowel sounds. There is no abdominal distention. SKIN: There is no rash. There is no edema. There is no diaphoresis. NEURO: The patient is awake and alert. Patient appears disorganized. The patient is not cooperative. The patient has normal speech and gait. MUSCULOSKELETAL: There is no evidence of acute injury. ED Course Vital Signs 11/07/16 17:07 Temperature 98.5 F Pulse Rate 127 H Respiratory 20 Rate Blood Pressure 126/83 O2 Sat by Pulse 99 Oximetry ED Medical Decision Making - Lab Data Result diagrams: 11/07/16 17:54 11/07/16 17:54 Laboratory Tests 11/07/16 11/07/16 11/07/16 17:20 17:20 17:54 WBC RBC Hgb Hct MCV MCH MCHC RDW Plt Count Lymph % (Auto) [place] % (Auto) Eos % (Auto) Baso % (Auto) Lymph # [place] # Eos # Baso # Seg Neutrophils % Seg Neutrophils # Sodium 138 Potassium 3.8 Chloride 101.1 Carbon Dioxide 25 Anion Gap 16 BUN 19 Creatinine 0.9 Estimated GFR > 60 BUN/Creatinine Ratio 21.11 Glucose 98 Calcium 9.0 Total Creatine Kinase TSH Free T4 Urine Color Yellow Urine Turbidity Clear Urine pH 5.0 Ur Specific [place] 1.029 Urine Protein 30 mg/dl Urine Glucose (UA) Neg Urine Ketones Tr Urine Blood Neg Urine Nitrite Neg Urine Bilirubin Neg Urine Urobilinogen < 2.0 Ur Leukocyte Esterase Neg Urine WBC (Auto) < 1.0 Urine RBC (Auto) 1.0 U Epithel Cells (Auto) < 1.0 Urine Mucus 3+ Salicylates Urine Opiates Screen Presumptive negative Urine Methadone Screen Presumptive negative Acetaminophen Ur Barbiturates Screen Presumptive negative Ur Phencyclidine Scrn Presumptive negative Ur Amphetamines Screen Presumptive negative U Benzodiazepines Scrn Presumptive negative Urine Cocaine Screen Presumptive negative U Marijuana (THC) Screen Presumptive negative Drugs of Abuse Note Disclamer Plasma/Serum Alcohol 11/07/16 11/07/16 11/07/16 17:54 17:54 17:54 WBC 6.6 RBC 3.97 Hgb 13.0 Hct 38.5 MCV 97 H MCH 33 H MCHC 34 RDW 14.2 Plt Count 299 Lymph % (Auto) 14.9 [place] % (Auto) 8.5 H Eos % (Auto) 2.2 Baso % (Auto) 0.7 Lymph # 1.0 L [place] # 0.6 Eos # 0.1 Baso # 0.0 Seg Neutrophils % 73.7 H Seg Neutrophils # 4.9 Sodium Potassium Chloride Carbon Dioxide Anion Gap BUN Creatinine Estimated GFR BUN/Creatinine Ratio Glucose Calcium Total Creatine Kinase TSH 0.401 Free T4 1.31 Urine Color Urine Turbidity Urine pH Ur Specific [place] Urine Protein Urine Glucose (UA) Urine Ketones Urine Blood Urine Nitrite Urine Bilirubin Urine Urobilinogen Ur Leukocyte Esterase Urine WBC (Auto) Urine RBC (Auto) U Epithel Cells (Auto) Urine Mucus Salicylates Urine Opiates Screen Urine Methadone Screen Acetaminophen Ur Barbiturates Screen Ur Phencyclidine Scrn Ur Amphetamines Screen U Benzodiazepines Scrn Urine Cocaine Screen U Marijuana (THC) Screen Drugs of Abuse Note Plasma/Serum Alcohol < 0.01 11/07/16 11/07/16 11/07/16 17:54 17:54 17:54 WBC RBC Hgb Hct MCV MCH MCHC RDW Plt Count Lymph % (Auto) [place] % (Auto) Eos % (Auto) Baso % (Auto) Lymph # [place] # Eos # Baso # Seg Neutrophils % Seg Neutrophils # Sodium Potassium Chloride Carbon Dioxide Anion Gap BUN Creatinine Estimated GFR BUN/Creatinine Ratio Glucose Calcium Total Creatine Kinase 704 H TSH Free T4 Urine Color Urine Turbidity Urine pH Ur Specific [place] Urine Protein Urine Glucose (UA) Urine Ketones Urine Blood Urine Nitrite Urine Bilirubin Urine Urobilinogen Ur Leukocyte Esterase Urine WBC (Auto) Urine RBC (Auto) U Epithel Cells (Auto) Urine Mucus Salicylates < 0.3 L Urine Opiates Screen Urine Methadone Screen Acetaminophen < 15.0 Ur Barbiturates Screen Ur Phencyclidine Scrn Ur Amphetamines Screen U Benzodiazepines Scrn Urine Cocaine Screen U Marijuana (THC) Screen Drugs of Abuse Note Plasma/Serum Alcohol - Differential Diagnosis schizophrenia Critical care attestation.: If time is entered above; I have spent that time in minutes in the direct care of this critically ill patient, excluding procedure time. ED Disposition Clinical Impression: Schizophrenia Disposition: DC/TX PSY HOSP/PSY UNIT Is pt being admited?: No Does the pt Need Aspirin: No Condition: Fair Time of Disposition: 17:55 (awaiting acceptance)
[2016-11-07 18:12] LABS: Basophils % (Auto) 0.7 % (0.0-1.8); Eosinophils % (Auto) 2.2 % (0.0-4.3); Hematocrit 38.5 % (35.5-45.6); Mean Corpuscular HGB Conc 34 % (32-34); Mean Corpuscular Hemoglobin 33 pg (28-32); Mean Corpuscular Volume 97 fl (84-94); Platelet Count 299 K/mm3 (140-440); Red Blood Count 3.97 M/mm3 (3.65-5.03); Red Cell Distribution Width 14.2 % (13.2-15.2); White Blood Count 6.6 K/mm3 (4.5-11.0)
[2016-11-07 18:29] LABS: Anion Gap 16 mmol/L; BUN/Creatinine Ratio 21.11; Blood Urea Nitrogen 19 mg/dL (9-20); Carbon Dioxide 25 mmol/L (22-30); Chloride 101.1 mmol/L (98-107); Glucose 98 mg/dL (75-100); Potassium 3.8 mmol/L (3.6-5.0); Sodium 138 mmol/L (137-145)
[2016-11-08 09:37] VITALS: BP 129/80
== END 2016-11-08 19:09 ==
LOC: ED 16:53
DX: F20.9 Schizophrenia, unspecified (principal); I10 Essential (primary) hypertension; F17.200 Nicotine dependence, unspecified, uncomplicated
CPT/HCPCS: 36415; 80048; 80307; 81001; 82550; 84439; 84443; 85025; 96365; 96372; 99285; G0480; J1200; J1630; J2060; J3411; J3475; J7030; 80320